=== PATIENT | female | born 1975 | race Caucasian/White ===

== ENCOUNTER → 2017-05-25 | Outpatient (CLI) | payer BC ==
--- NOTE | 2017-05-26 07:47 | MAMMOGRAPHY REPORT ---
UNILATERAL LEFT DIGITAL DIAGNOSTIC MAMMOGRAM TOMOSYNTHESIS AND TARGETED LEFT ULTRASOUND: 05/25/2017 CLINICAL HISTORY: 41-year-old woman called back from screening mammography for a small 5 mm nodular a symmetry in the far posterior left breast on the MLO view. TECHNIQUE: Spot compression left CC and MLO 2-D and tomosynthesis images were obtained. COMPARISON: Comparison is made to exams dated: 05/20/2017 mammogram, 05/16/2016 mammogram, 05/15/2015 mammogram, 05/10/2012 mammogram, 04/08/2011 mammogram - [facility], and 10/12/2006. BREAST COMPOSITION: The tissue of the left breast is extremely dense, which lowers the sensitivity o f mammography. FINDINGS: On the spot compression left MLO view, the pectoralis muscle extends more inferiorly than on the MLO view obtained 05/20/2017 and there is possible inclusion of more posterior tissue in the a meron of the 5 mm nodular asymmetry. On this view, there is no evidence of a persistent mass, focal ar ea of distortion or asymmetry. This suggests the asymmetry represented normal overlapping tissue. Further evaluation with targeted ultrasound was performed in the lateral left breast 2:00 through 5:0 0 axes including the retroareolar breast, given the location of the nodular asymmetry in the lateral breast based on the tomosynthesis localizer bar. Throughout the left breast, sonographically normal dense glandular tissue is seen without a suspicious solid or cystic mass. Incidental note is made of 2 anechoic benign cysts in the 4:00 area areolar left breast, measuring 3.5 x 1.6 x 1.9 mm, and 2.5 x 1.5 mm. IMPRESSION: ACR BI-RADS CATEGORY 2: BENIGN, TARGETED ULTRASOUND ACR BI-RADS CATEGORY 2: BENIGN There is effacement of the 5 mm nodular asymmetry in the posterior slightly inferior left breast on t he spot compression MLO view including tomosynthesis images. No suspicious sonographic correlate paola ntified. This most likely represented normal overlapping hyperglandular tissue. There is no mammogr aphic or targeted sonographic evidence of malignancy. Recommend return to annual screening mammograp hy schedule. These results and recommendations were discussed with the patient at the time of the ex am. Approximately 10% of breast cancers are not detected with mammography. A negative mammographic report should not delay biopsy if a clinically suggestive mass is present. Marce Vital M.D. ay/:05/25/2017 13:50:58 Chemical Dependency Counselor: Walter DELUCA(Camilo)(Tiffanie), [facility] letter sent: Normal 1/2 BI-RADS Code: ACR BI-RADS Category 2: Benign Ultrasound BI-RADS: ACR BI-RADS Category 2: Benign
== END | disposition home or self-care (01) ==
LOC: C.MAMM 13:11
PROVIDERS: ATTEND Physician Assistant
DX: N64.89 Other specified disorders of breast (principal)